=== PATIENT | female | born 2000 | race Two or more races ===

== ENCOUNTER 2024-04-17 20:41 | Emergency (ER) | payer BC ==
[~2024-04-17] VITALS: Ht 154.9 cm; Wt 130.5 kg
[2024-04-17 21:56] LABS: BILIRUBIN,URINE NEGATIVE (Neg); CLARITY,URINE CLEAR (Clear); COLOR,URINE YELLOW (Yellow); GLUCOSE, URINE NEGATIVE (Neg); KETONES,URINE NEGATIVE (Neg); LEUKOCYTE ESTERASE ,URINE TRACE (Neg); NITRITES, URINE NEGATIVE (Neg); OCCULT BLOOD,URINE MODERATE (Neg); PROTEIN,URINE NEGATIVE (Neg); UROBILINOGEN,URINE 0.2 E.U/dL (0.2-1.0)
[2024-04-17 21:58] LABS: URINE HCG NEGATIVE (NEG)
[2024-04-17 22:00] LABS: UA COLLECTION TYPE CLN CATCH MIDSTREAM
[2024-04-17 22:01] LABS: BACTERIA,URINE FEW /HPF (Neg); MUCUS STRANDS NONE SEEN /LPF (Neg); SQUAMOUS EPITHELIAL CELL,UR FEW /LPF (FEW)
[2024-04-17] MEDS ORDERED: sulfamethoxazole/trimethoprim SS (400mg/80mg) tab (single-strength) PO SCH (22:05)
[2024-04-17] MEDS ORDERED: SULF1TAB45 PO (22:07)
[2024-04-17] MEDS ORDERED: sulfamethoxazole/trimethoprim DS (800/160mg) tablet PO ONE (22:10)
[2024-04-17] MEDS: sulfamethoxazole/trimethoprim DS (800/160mg) tablet PO ONE (22:15)
[2024-04-17 22:22] VITALS: BP 124/70; PULSE 62; RESP 15; TEMP 98.2; O2SAT 98
== END 2024-04-17 22:23 | disposition home or self-care (01) ==
LOC: ER 20:41
DX: N39.0 Urinary tract infection, site not specified (principal)
CPT/HCPCS: 81001; 81025; 87077; 87088; 87186; 99283